=== PATIENT | male | born 1965 | race Caucasian/White ===

== ENCOUNTER 2016-05-29 13:17 | Emergency (ER) | payer OTHER ==
[2016-05-29 14:28] VITALS: BP 104/74
[2016-05-29] MEDS ORDERED: Lidocaine 2% W/EPI 1:100,000* 20 ML MDV ONE (14:38)
--- NOTE | 2016-05-29 14:40 | UC ---
Skin Complaint HPI - HPI Summary HPI Summary: Growing painful lump on back of neck for about 5 days. Denies fever or injury to the area. - History of Current Complaint Time Seen by Provider: 05/29/16 14:17 Stated Complaint: SKIN COMPLAINT ON NECK Hx Obtained From: Patient Onset/Duration: Gradual Onset, Lasting Days Skin Exposure Onset/Duration: Days Ago Timing: Constant Onset Severity: Mild Current Severity: Moderate Location: Discrete Character: Pain, Redness, Raised Aggravating: Touch - Allergy/Home Medications Allergies/Adverse Reactions: Allergies Allergy/AdvReac Type Severity Reaction Status Date / Time bee stings Allergy Unknown Uncoded 02/08/15 13:09 Reaction Details Review of Systems Constitutional: Negative Skin: Other - lump on neck Eyes: Negative ENT: Negative Respiratory: Negative Cardiovascular: Negative Gastrointestinal: Negative Genitourinary: Negative Motor: Negative Neurovascular: Negative Musculoskeletal: Negative Neurological: Negative Psychological: Negative All Other Systems Reviewed And Are Negative: Yes PMH/Surg Hx/FS Hx/Imm Hx Previously Healthy: Yes - Surgical History Surgical History: None - Family History Known Family History: Positive: None - Social History Alcohol Use: Occasionally Substance Use Type: Excessive Caffeine Smoking Status (MU): Never Smoked Tobacco Type: Smokeless Tobacco Amount Used/How Often: 0ne tin/ week Physical Exam Triage Information Reviewed: Yes Appearance: Well-Appearing, No Pain Distress, Well-Nourished Vital Signs: Initial Vital Signs Temp 99.1 F 05/29/16 14:22 Pulse 76 05/29/16 14:22 Resp 16 05/29/16 14:22 BP 104/74 05/29/16 14:22 Pulse Ox 98 05/29/16 14:22 Vital Signs Reviewed: Yes Eye Exam: Normal Eyes: Positive: Conjunctiva Clear ENT: Positive: Normal ENT inspection, Hearing grossly normal, Other: - bilat cerumen impaction. Negative: Nasal congestion, Nasal drainage Dental Exam: Normal Neck: Positive: Tenderness @ - L posterior cervical lymph nodes Respiratory Exam: Normal Respiratory: Positive: Chest non-tender, Lungs clear, Normal breath sounds, No respiratory distress, No accessory muscle use Cardiovascular Exam: Normal Cardiovascular: Positive: RRR, No Murmur Musculoskeletal Exam: Normal Neurological Exam: Normal Psychological Exam: Normal Skin Exam: Other - abscess on back of neck Course/Dx - Diagnoses Provider Diagnoses: abscess incision and drainage on neck Procedures - Incision and Drainage Site: posterior neck Anesthesia: Lidocaine - 2% with lidocaine 3mL Instrument(s): Scalpel - large pus return with foul odor and fibrous debris Packing: Other - none Discharge - Discharge Plan Condition: Stable Disposition: HOME Prescriptions: Sulfamethox/Trimethoprim DS* [Bactrim DS 800/160 TAB*] 1 tab PO BID #10 tab Patient Education Materials: Abscess Incision and Drainage (ED) Referrals: Carlota Maki MD [Primary Care Provider] - 2 Weeks Additional Instructions: Apply frequent warm soaks to encourage drainage. If there is increasing pain or redness, or if you develop a fever, please return here.
== END 2016-05-29 15:00 | disposition home or self-care (01) ==
LOC: UCCORT 13:17
DX: L02.11 Cutaneous abscess of neck (principal); F17.220 Nicotine dependence, chewing tobacco, uncomplicated
CPT/HCPCS: 10060; 87070; 87076; 87205; 87640; 87641; 99212; G0463

== ENCOUNTER 2018-04-01 14:33 | Emergency (ER) | payer OTHER ==
[2018-04-01 14:55] VITALS: BP 137/78
--- NOTE | 2018-04-01 15:03 | UC ---
Abdominal Pain Male HPI - HPI Summary HPI Summary: The patient is a 52-year-old male that had the onset of nausea and vomiting 3 days ago. He had multiple episodes of vomiting .he has had no vomiting for about 24 hours and has been able to tolerate liquids. For the past 24 hours he has had at least 10 episodes of diarrhea. He denies any fever. He denies any abdominal pain. He denies any blood in his stool or vomitus. He has [place] been out of the country. He denies any recent antibiotic use. He is on city water. No other family members are ill. He has a pet dog which is healthy. He also wishes me to check his right ear because he can't hear out of it.. - History of Current Complaint Chief Complaint: UCGI Stated Complaint: VOMITING,DIARRHEA,BODY ACHES Time Seen by Provider: 04/01/18 15:02 Hx Obtained From: Patient Onset/Duration: Gradual Onset, Lasting Days Timing: Constant Severity Initially: Moderate Severity Currently: Mild Pain Intensity: 0 Pain Scale Used: 0-10 Numeric Location: Other - diffuse crampy abd pain with the diarrhea Radiates: No Character: Cramping Aggravating Factor(s): Other - diarrhea Associated Signs And Symptoms: Positive: Decreased Appetite, Nausea, Vomiting, Diarrhea. Negative: Diaphoresis, Fever, Cough, Chest Pain, Dizzy, Back Pain, Constipation, Blood in Stool, Urinary Symptoms - Allergies/Home Medications Allergies/Adverse Reactions: Allergies Allergy/AdvReac Type Severity Reaction Status Date / Time bee stings Allergy Unknown Uncoded 04/01/18 14:56 Reaction Details PMH/Surg Hx/FS Hx/Imm Hx Previously Healthy: Yes - Surgical History Surgical History: None - Family History Known Family History: Positive: Hypertension - Social History Alcohol Use: Rare Substance Use Type: None Smoking Status (MU): Heavy Every Day Tobacco Smoker Type: Smokeless Tobacco Amount Used/How Often: 0ne tin/ 2 days Review of Systems All Other Systems Reviewed And Are Negative: Yes Constitutional: Positive: Negative Skin: Positive: Negative Eyes: Positive: Negative ENT: Positive: Negative Respiratory: Positive: Negative Cardiovascular: Positive: Negative Gastrointestinal: Positive: Vomiting, Diarrhea, Nausea Genitourinary: Positive: Negative Motor: Positive: Negative Neurovascular: Positive: Negative Musculoskeletal: Positive: Negative Neurological: Positive: Negative Psychological: Positive: Negative Physical Exam Triage Information Reviewed: Yes Appearance: Well-Appearing, No Pain Distress, Well-Nourished Vital Signs: Initial Vital Signs Temp 99 F 04/01/18 14:48 Pulse 96 04/01/18 14:48 Resp 16 04/01/18 14:48 BP 137/78 04/01/18 14:48 Pulse Ox 97 04/01/18 14:48 Vital Signs Reviewed: Yes Eyes: Positive: Conjunctiva Clear ENT: Negative: Hearing grossly normal, TMs normal - unable to vis both TMs due to cerumen, Tonsillar swelling, Tonsillar exudate, Dental tenderness, Sinus tenderness, Uvula midline Neck: Positive: Supple, Nontender, No Lymphadenopathy Respiratory: Positive: Lungs clear, Normal breath sounds, No respiratory distress, No accessory muscle use Cardiovascular: Positive: RRR, No Murmur, Pulses Normal Abdomen Description: Positive: Nontender, No Organomegaly, Soft. Negative: Bruit, CVA Tenderness (R), CVA Tenderness (L), Distended, Guarding Bowel Sounds: Positive: Present Musculoskeletal: Positive: ROM Intact, No Edema Neurological: Positive: Alert Psychological Exam: Normal Skin Exam: Normal Abd Pain Male Course/Dx - Differential Dx/Clinical Impression Provider Diagnosis: Gastroenteritis, Cerumen impaction, Elevated BP without diagnosis of hypertension Discharge - Sign-Out/Discharge Documenting (check all that apply): Patient Departure All imaging exams completed and their final reports reviewed: No Studies - Discharge Plan Condition: Stable Disposition: HOME Prescriptions: Ondansetron TAB* [Zofran Tab*] 4 mg PO Q6H PRN #10 tab PRN Reason: Nausea Patient Education Materials: Cerumen Impaction (ED), Gastroenteritis (ED) Forms: *Gen. Provider Communication, *Work Release Referrals: No Primary Care Phys,NOPCP [Primary Care Provider] - Additional Instructions: recheck in 48 hours if not better recheck sooner for abd pain /fever/intractable vomiting you BP was in the pre hypertensive range and should be followed - Billing Disposition and Condition Condition: STABLE Disposition: Home
== END 2018-04-01 15:39 | disposition home or self-care (01) ==
LOC: UCCORT 14:33
DX: K52.9 Noninfective gastroenteritis and colitis, unspecified (principal); H61.23 Impacted cerumen, bilateral; R03.0 Elevated blood-pressure reading, without diagnosis of hypertension; F17.290 Nicotine dependence, other tobacco product, uncomplicated; Z91.030 Bee allergy status
CPT/HCPCS: 99213; G0463